=== PATIENT | male | born 1950 | race Caucasian/White ===

== ENCOUNTER 2022-12-11 23:13 | Emergency (ER) | payer MEDICARE, BC ==
[~2022-12-11] VITALS: Ht 188 cm; Wt 97.3 kg
[2022-12-11 23:24] VITALS: BP 140/100
[2022-12-12] MEDS ORDERED: SULF1TAB49 PO (01:14)
[2022-12-12] MEDS ORDERED: sulfamethoxazole/trimethoprim DS (800/160mg) tablet PO ONE (01:15)
== END 2022-12-12 01:35 | disposition home or self-care (01) ==
LOC: ER 23:15
DX: B99.8 Other infectious disease (principal); Z88.2 Allergy status to sulfonamides
CPT/HCPCS: 99283